=== PATIENT | female | born 1995 ===

== ENCOUNTER 2020-10-05 06:00 | Day surgery (SDC) | payer OTHER ==
[~2020-10-05 06:00] MED LIST: LEVO-T137 MCG PO
[2020-10-05] MEDS ORDERED: PERCOCET 5-3251 EACH PO (11:40)
[2020-10-05] MEDS ORDERED: COLACE100 MG PO (11:40)
[2020-10-05] MEDS ORDERED: NEURONTIN300 MG PO (13:15)
== END 2020-10-05 17:00 | disposition home or self-care (01) ==
LOC: CIR.AMB 06:00
PROVIDERS: ATTEND Surgery
DX: K62.4 Stenosis of anus and rectum (principal); K60.1 Chronic anal fissure; Z20.828 Contact with and (suspected) exposure to other viral communicable diseases